=== PATIENT | male | born 1945 | race Caucasian/White ===

== ENCOUNTER 2021-10-19 06:17 | Inpatient (IN) ==
[2021-10-19] MEDS ORDERED: Ondansetron 4 MG/2 ML VIAL IVP PRN (11:13)
[2021-10-19] MEDS ORDERED: Naloxone 0.4 MG/ML INJ IVP PRN (11:13)
[2021-10-19] MEDS ORDERED: *HR* OxyCODONE Immed Rel 5 MG TABLET PO PRN (11:13)
[2021-10-19] MEDS ORDERED: *HR* HYDROcodone/Acet 5/325 mg TABLET PO PRN (11:13)
[2021-10-19] MEDS ORDERED: Acetaminophen 325 MG TABLET PO PRN (11:13)
[2021-10-19] MEDS ORDERED: 0.9 % Sodium Chloride 250 ML IVC SCH ×2 (11:30→13:30)
[2021-10-19 13:11] LABS: Nucleated Red Blood Cells 4.7 /100 WBC (0); Red Blood Count 1.81 M/mcL (4.19-5.50)
[2021-10-19 13:13] LABS: Hematocrit 16.3 % (37.5-50.1); Immature Platelets 13.7 % (1.1-6.1); Lymphocytes # 0.2 K/mcL (0.6-4.6); Mean Corpuscular HGB Conc 31.3 g/dL (31.6-35.5); Mean Corpuscular Hemoglobin 28.2 pg (28.0-33.3); Mean Corpuscular Volume 90.1 fL (83.0-100.0); Neutrophils # 0.2 K/mcL (1.6-8.9); Red Cell Distribution Width 18.3 % (11.5-14.5)
[2021-10-19 13:19] LABS: Platelet Count 28 K/mcL (140-400)
[2021-10-19 13:20] LABS: Hemoglobin 5.1 g/dL (12.9-16.9); White Blood Count 0.4 K/mcL (4.3-11.1)
[2021-10-19 13:23] LABS: INR 1.8; Prothrombin Time 20.5 Seconds (9.4-12.1)
[2021-10-19 13:35] LABS: Albumin 3.6 g/dL (3.5-5.7); Albumin/Globulin Ratio 1.2 (1.1-2.2); Bilirubin,Direct 0.4 mg/dL (0.0-0.2); Bilirubin,Total 1.4 mg/dL (0.3-1.0); Calcium 8.5 mg/dL (8.6-10.3); Magnesium 2.3 mg/dL (1.6-2.6); Phosphorous 4.6 mg/dL (2.7-4.5); Potassium 4.2 mEq/L (3.5-5.1); Total Protein 6.6 g/dL (6.4-8.9); Troponin I < 0.03 ng/mL (< 0.04)
[2021-10-19 14:10] LABS: Bilirubin,Urine Negative (Negative); Clarity,Urine Turbid (Clear); Color,Urine Yellow (Yellow); Glucose,Urine (UA) Normal (Normal); Ketones,Urine Negative (Negative)
[2021-10-19 14:11] LABS: Blood,Urine Negative (Negative); Nitrite,Urine Negative (Negative); PH,Urine 5.5 pH Units (5.0-8.0); Protein,Urine 50 mg/dL (Neg-Trace); Urobilinogen,Urine Normal (Normal)
[2021-10-19 14:12] LABS: Leukocyte Esterase,Urine Negative (Negative); RBC,Urine 0-3 per hpf (0-3)
[2021-10-19 14:13] LABS: Squamous Epithelial Cell,Urine Few per hpf (None-Few)
[2021-10-19 14:15] LABS: Granular Casts,Urine Few per lpf (None Seen)
[2021-10-19 14:16] LABS: Amorphous Sediment,Urine Few per hpf (None-Few)
[2021-10-19 14:17] LABS: Bacteria,Urine Few per hpf (None-Few)
[2021-10-19 14:33] LABS: Dohle Bodies Present (Not Present); Toxic Granulation Present (Not Present)
[2021-10-19 14:35] LABS: Platelet Estimate Marked Decrease (Normal)
[2021-10-19 14:36] LABS: Anisocytosis 1+ (Not Present); Hypochromasia Present (Not Present)
[2021-10-19 14:37] LABS: Poikilocytosis 1+ (Not Present)
[2021-10-19 14:38] LABS: Basophilic Stippling 1+ (Not Present)
[2021-10-20 05:30] LABS: Alanine Aminotransferase 46 Units/L (7-52); Albumin 3.4 g/dL (3.5-5.7); Albumin/Globulin Ratio 1.2 (1.1-2.2); Alkaline Phosphatase 50 Units/L (34-104); Aspartate Amino Transferase 36 Units/L (13-39); BUN/Creatinine Ratio 37 (6-26); Bilirubin,Direct 0.3 mg/dL (0.0-0.2); Bilirubin,Indirect 0.9 mg/dL (0.0-1.0); Bilirubin,Total 1.2 mg/dL (0.3-1.0); Blood Urea Nitrogen 48 mg/dL (8-23); Calcium 8.5 mg/dL (8.6-10.3); Carbon Dioxide 22 mEq/L (23-29); Chloride 103 mEq/L (98-107); Globulin 2.8 g/dL (2.4-3.5); Glucose 122 mg/dL (70-105); Magnesium 2.3 mg/dL (1.6-2.6); Osmolality,Calculated 290 (280-300); Potassium 4.5 mEq/L (3.5-5.1); Red Blood Count 2.48 M/mcL (4.19-5.50); Sodium 133 mEq/L (136-145); Total Protein 6.2 g/dL (6.4-8.9); eGFR For African Americans > 60 (> 60); eGFR For Non-African Americans 54 (> 60)
[2021-10-20 05:31] LABS: Hematocrit 21.3 % (37.5-50.1); Hemoglobin 6.9 g/dL (12.9-16.9); Immature Platelets 11.3 % (1.1-6.1); Lymphocytes # 0.2 K/mcL (0.6-4.6); Lymphocytes % 32.3 %; Mean Corpuscular HGB Conc 32.4 g/dL (31.6-35.5); Mean Corpuscular Hemoglobin 27.8 pg (28.0-33.3); Mean Corpuscular Volume 85.9 fL (83.0-100.0); Monocytes % 3.2 %; Neutrophils # 0.4 K/mcL (1.6-8.9); Nucleated Red Blood Cells 9.7 /100 WBC (0); Segmented Neutrophils % 64.5 %
[2021-10-20 05:51] LABS: Platelet Count 52 K/mcL (140-400); White Blood Count 0.6 K/mcL (4.3-11.1)
[2021-10-20 06:18] LABS: Anisocytosis 2+ (Not Present); Platelet Estimate Decreased (Normal); Reactive Lymphocytes Present (Not Present)
[2021-10-20 09:55] LABS: Hemoglobin 7.6 g/dL (12.9-16.9)
[2021-10-20 09:57] LABS: Hematocrit 22.4 % (37.5-50.1)
[2021-10-20] MEDS: Cefepime HCl 2,000 MG in 0.9 % Sodium Chloride 10 ML IVP SCH ×3 (14:50→22:33)
[2021-10-21 05:53] LABS: Hemoglobin 7.4 g/dL (12.9-16.9)
[2021-10-21 05:55] LABS: Hematocrit 22.3 % (37.5-50.1); Immature Platelets 14.3 % (1.1-6.1); Lymphocytes # 0.2 K/mcL (0.6-4.6); Lymphocytes % 32.1 %; Mean Corpuscular HGB Conc 33.2 g/dL (31.6-35.5); Mean Corpuscular Hemoglobin 28.4 pg (28.0-33.3); Mean Corpuscular Volume 85.4 fL (83.0-100.0); Monocytes % 3.8 %; Neutrophils # 0.3 K/mcL (1.6-8.9); Nucleated Red Blood Cells 11.3 /100 WBC (0); Red Blood Count 2.61 M/mcL (4.19-5.50); Segmented Neutrophils % 64.1 %
[2021-10-21 06:07] LABS: BUN/Creatinine Ratio 38 (6-26); Blood Urea Nitrogen 51 mg/dL (8-23); Calcium 8.4 mg/dL (8.6-10.3); Carbon Dioxide 21 mEq/L (23-29); Chloride 103 mEq/L (98-107); Glucose 108 mg/dL (70-105); Magnesium 2.4 mg/dL (1.6-2.6); Osmolality,Calculated 288 (280-300); Phosphorous 3.4 mg/dL (2.7-4.5); Potassium 4.4 mEq/L (3.5-5.1); Sodium 132 mEq/L (136-145); eGFR For African Americans > 60 (> 60); eGFR For Non-African Americans 51 (> 60)
[2021-10-21 06:19] LABS: Platelet Count 44 K/mcL (140-400)
[2021-10-21 06:20] LABS: White Blood Count 0.5 K/mcL (4.3-11.1)
[2021-10-21 06:21] LABS: Anisocytosis 1+ (Not Present); Platelet Estimate Decreased (Normal)
[2021-10-21] MEDS: Cefepime HCl 2,000 MG in 0.9 % Sodium Chloride 10 ML IVP SCH (09:21)
[2021-10-21 12:46] LABS: Hemoglobin 7.7 g/dL (12.9-16.9)
[2021-10-21 12:47] LABS: Hematocrit 23.1 % (37.5-50.1)
[2021-10-21] MEDS: Cefepime HCl 2,000 MG in 0.9 % Sodium Chloride 20 ML IVP SCH (17:31)
[2021-10-22 02:56] LABS: Hemoglobin 7.4 g/dL (12.9-16.9); Immature Platelets 16.7 % (1.1-6.1); Mean Corpuscular HGB Conc 32.2 g/dL (31.6-35.5); Mean Corpuscular Hemoglobin 27.7 pg (28.0-33.3); Mean Corpuscular Volume 86.1 fL (83.0-100.0); Neutrophils # 0.4 K/mcL (1.6-8.9); Nucleated Red Blood Cells 6.9 /100 WBC (0); Red Blood Count 2.67 M/mcL (4.19-5.50); Red Cell Distribution Width 17.1 % (11.5-14.5)
[2021-10-22 03:14] LABS: BUN/Creatinine Ratio 40 (6-26); Blood Urea Nitrogen 55 mg/dL (8-23); Calcium 8.5 mg/dL (8.6-10.3); Carbon Dioxide 22 mEq/L (23-29); Chloride 106 mEq/L (98-107); Glucose 98 mg/dL (70-105); Magnesium 2.5 mg/dL (1.6-2.6); Osmolality,Calculated 295 (280-300); Phosphorous 3.2 mg/dL (2.7-4.5); Potassium 4.1 mEq/L (3.5-5.1); Sodium 135 mEq/L (136-145); eGFR For African Americans > 60 (> 60); eGFR For Non-African Americans 50 (> 60)
[2021-10-22 03:35] LABS: Platelet Count 55 K/mcL (140-400)
[2021-10-22 03:37] LABS: White Blood Count 0.7 K/mcL (4.3-11.1)
[2021-10-22 04:43] LABS: Band Neutrophils % 2.5 % (0-4); Hypochromasia Present (Not Present); Lymphocytes # 0.2 K/mcL (0.6-4.6); Myelocytes % 2.5 % (0); Platelet Estimate Marked Decrease (Normal)
[2021-10-22] MEDS: Cefepime HCl 2,000 MG in 0.9 % Sodium Chloride 20 ML IVP SCH (05:52)
[2021-10-22 12:17] LABS: Hematocrit 25.7 % (37.5-50.1)
[2021-10-22 12:19] LABS: Hemoglobin 8.5 g/dL (12.9-16.9)
[2021-10-23 03:11] LABS: Red Cell Distribution Width 17.1 % (11.5-14.5)
[2021-10-23 03:13] LABS: Hematocrit 23.6 % (37.5-50.1); Hemoglobin 7.5 g/dL (12.9-16.9); Immature Platelets 12.6 % (1.1-6.1); Lymphocytes # 0.4 K/mcL (0.6-4.6); Lymphocytes % 37.4 %; Mean Corpuscular HGB Conc 31.8 g/dL (31.6-35.5); Mean Corpuscular Hemoglobin 27.8 pg (28.0-33.3); Mean Corpuscular Volume 87.4 fL (83.0-100.0); Monocytes # 0.1 K/mcL (0.0-1.3); Monocytes % 9.3 %; Neutrophils # 0.6 K/mcL (1.6-8.9); Nucleated Red Blood Cells 3.7 /100 WBC (0); Segmented Neutrophils % 53.3 %
[2021-10-23 03:28] LABS: BUN/Creatinine Ratio 40 (6-26); Blood Urea Nitrogen 47 mg/dL (8-23); Calcium 8.4 mg/dL (8.6-10.3); Carbon Dioxide 21 mEq/L (23-29); Chloride 107 mEq/L (98-107); Glucose 94 mg/dL (70-105); Magnesium 2.6 mg/dL (1.6-2.6); Osmolality,Calculated 292 (280-300); Phosphorous 3.3 mg/dL (2.7-4.5); Potassium 4.8 mEq/L (3.5-5.1); Sodium 135 mEq/L (136-145); eGFR For African Americans > 60 (> 60); eGFR For Non-African Americans > 60 (> 60)
[2021-10-23 03:30] LABS: Platelet Count 82 K/mcL (140-400); White Blood Count 1.1 K/mcL (4.3-11.1)
[2021-10-23 03:44] LABS: Anisocytosis 1+ (Not Present); Platelet Estimate Decreased (Normal)
[2021-10-23 04:04] VITALS: BP 139/86; PULSE 80; TEMP 97.7; O2SAT 95
[2021-10-23] MEDS ORDERED: amLODIPine 5 MG TABLET PO SCH (09:00)
[2021-10-23] MEDS ORDERED: levoFLOXacin 750 MG TABLET PO SCH (09:00)
[2021-10-23] MEDS ORDERED: Sennosides/Docusate Sodium TABLET PO SCH (09:15)
== END 2021-10-23 14:00 | disposition home health service (06) | DRG 808 ==
LOC: 3NENU → SUATTDRO 09:54
PROVIDERS: ADMIT Pharmacist; ATTEND Internal Medicine